=== PATIENT | male | born 1995 | race Caucasian/White ===

== ENCOUNTER 2024-02-21 06:39 | Inpatient (IN) | payer OTHER, MEDICAID ==
[~2024-02-21] VITALS: Ht 167.6 cm; Wt 95.8 kg
[~2024-02-21 06:39] MED LIST: RINGERS SOLUTION,LACTATED 1,000 ML IV ONE
[2024-02-21] MEDS ORDERED: AMPICILLIN SODIUM 2 GM/NS 100 ML IV ONE (07:11)
[2024-02-21] MEDS ORDERED: MIDAZOLAM HCL 5 MG/ML VIAL ONE (08:36)
[2024-02-21] MEDS ORDERED: FentaNYL CITRATE PF 100 MCG/2 ML VIAL ONE (08:37)
[2024-02-21 09:07] LABS: BASOPHILS % (AUTO) 0.6 % (0.0-2.0); EOSINOPHILS % (AUTO) 3.3 % (1.0-6.0); HEMATOCRIT 45.8 % (41-53); HEMOGLOBIN 15.2 g/dL (13.5-17.5); LYMPHOCYTES # (AUTO) 3.4 K/uL (1.0-4.8); LYMPHOCYTES % (AUTO) 43.5 % (22.0-44.0); MEAN CORPUSCULAR HEMOGLOBIN 28.4 pg (26.0-34.0); MEAN CORPUSCULAR HGB CONC 33.1 G/dL (31.0-37.0); MEAN CORPUSCULAR VOLUME 86 fL (80-100); MONOCYTES # (AUTO) 0.9 K/uL (0.1-1.0); MONOCYTES % (AUTO) 11.6 % (2.0-9.0); NEUTROPHILS # (AUTO) 3.2 K/uL (1.8-7.7); PLATELET COUNT (AUTO) 239 K/uL (150-450); RED BLOOD CELL COUNT(AUTO) 5.34 MIL/uL (4.50-5.90); RED CELL DISTRIBUTION WIDTH 15.4 % (11.5-14.5); WHITE BLOOD COUNT (AUTO) 7.8 K/uL (4.5-11.0)
[2024-02-21 09:22] LABS: ANION GAP 5 mmol/L (8-16); CALCIUM, TOTAL 8.8 mg/dL (8.8-10.5); CARBON DIOXIDE 33 mmol/L (22-29); CHLORIDE 101 mmol/L (98-107); CREATININE 0.62 mg/dL (0.60-1.30); GLOMERULAR FILTR. RATE CALC > 60 mL/min (>60); GLUCOSE,RANDOM 94 mg/dL (70-110); POTASSIUM 4.2 mmol/L (3.5-5.1); SODIUM SERUM 139 mmol/L (136-145); UREA NITROGEN, BLOOD 10 mg/dL (7-18)
[2024-02-21 09:26] LABS: PROTHROMBIN TIME 10.8 SEC (9.4-11.6)
[2024-02-21 09:29] LABS: ALANINE AMINOTRANSFERASE 100 U/L (12-78); ALBUMIN 3.6 g/dL (3.4-5.0); ALKALINE PHOSPHATASE 73 U/L (46-116); ASPARTATE AMINOTRANSFERASE 39 U/L (15-37); BILIRUBIN,TOTAL 0.3 mg/dL (0.1-1.0); TOTAL PROTEIN, SERUM 8.4 g/dL (6.4-8.2)
[2024-02-21] MEDS ORDERED: DIVA125T32 PO (09:42)
[2024-02-21] MEDS ORDERED: DIPH-1164 PO (09:42)
[2024-02-21] MEDS ORDERED: CLON-595 PO (09:42)
[2024-02-21] MEDS ORDERED: MELA3TAB89 PO (09:42)
[2024-02-21] MEDS: RINGERS SOLUTION,LACTATED 1,000 ML IV ONE (09:56)
[2024-02-21] MEDS ORDERED: LIDOCAINE/PF 2% 5 ML VIAL IM ONE (12:00)
[2024-02-21] MEDS ORDERED: KETAMINE HCL 50 MG/ML 10 ML VIAL IVP ONE (12:00)
[2024-02-21] MEDS ORDERED: ONDANSETRON HCL 4 MG/2 ML VIAL IVP ONE (12:00)
[2024-02-21] MEDS ORDERED: PROPOFOL 1% 20 ML VIAL IVP ONE (12:00)
[2024-02-21] MEDS ORDERED: ROCURONIUM BROMIDE 10 MG/ML 5 ML VIAL IVP ONE (12:00)
[2024-02-21] MEDS ORDERED: SUGAMMADEX SODIUM 200 MG/2 ML VIAL IVP ONE (12:00)
[2024-02-21] MEDS ORDERED: DEXAMETHASONE SOD PHOS 4 MG/ML VIAL IVP ONE (12:00)
[2024-02-21] MEDS: IPRATROPIUM BROMIDE 0.5 MG/2.5 ML NEB SOLUTION NEB PRN ×2 (12:30→18:57)
[2024-02-21] MEDS: ALBUTEROL SULFATE 2.5 MG/0.5 ML NEB SOLUTION NEB PRN ×2 (12:30→18:57)
[2024-02-21] MEDS ORDERED: FLUMAZENIL 0.1 MG/ML 5 ML VIAL IVP ONE (13:32)
[2024-02-21] MEDS ORDERED: MELATONIN 3 MG TABLET PO PRN (15:30)
[2024-02-21] MEDS ORDERED: MAGNESIUM HYDROXIDE SUSPENSION 30 ML UDCUP PO PRN (15:30)
[2024-02-21] MEDS ORDERED: ACETAMINOPHEN 325 MG TABLET PO PRN (15:30)
[2024-02-21] MEDS ORDERED: ONDANSETRON HCL 4 MG/2 ML VIAL IVP PRN (15:30)
[2024-02-21] MEDS ORDERED: BISACODYL 10 MG RECTAL RECTAL SUPPOSITORY PR PRN (15:30)
[2024-02-21 16:05] VITALS: BP 127/80; PULSE 112; RESP 19; TEMP 97.7; O2SAT 93
[2024-02-21] MEDS ORDERED: SODIUM CHLORIDE 0.9% 500 ML IV ONE (16:11)
[2024-02-21] MEDS: AMPICILLIN SODIUM/SULBACTAM NA 1.5 GM in SODIUM CHLORIDE 0.9% 50 ML IV SCH (16:49)
[2024-02-21 17:30] VITALS: O2SAT 92
[2024-02-21 18:58] VITALS: PULSE 113; RESP 25; O2SAT 93
[2024-02-21 19:00] VITALS: PULSE 113; RESP 24; O2SAT 93
[2024-02-21 19:12] LABS: APPEARANCE,URINE CLEAR (CLEAR); BILIRUBIN,URINE NEGATIVE (NEGATIVE); COLOR,URINE LIGHT YELLOW (YELLOW); GLUCOSE, URINE (UA) NEGATIVE (NEGATIVE); KETONES,URINE NEGATIVE (NEGATIVE); LEUKOCYTE ESTERASE ,URINE NEGATIVE (NEGATIVE); NITRATE,URINE NEGATIVE (NEGATIVE); OCCULT BLOOD,URINE NEGATIVE (NEGATIVE); PH,URINE 6.5 (5.0-8.0); PROTEIN,URINE NEGATIVE (NEGATIVE); SPECIFIC GRAVITIY, URINE 1.023 (1.003-1.030); UROBILINOGEN,URINE <=1.0 mg/dL (<=1.0)
[2024-02-21] MEDS: HEPARIN SODIUM,PORCINE 5,000 UNITS/ML VIAL SQ SCH (20:44)
[2024-02-21] MEDS: DIVALPROEX SODIUM 125 MG DR TABLET PO SCH (20:44)
[2024-02-21 22:40] VITALS: BP 134/84; PULSE 104; RESP 20; TEMP 97.9; O2SAT 92
[2024-02-21 23:35] VITALS: PULSE 100; RESP 23; O2SAT 83
[2024-02-22 00:48] VITALS: O2SAT 93
[2024-02-22 06:54] VITALS: BP 105/64; PULSE 106; RESP 20; TEMP 98.6; O2SAT 86
[2024-02-22 07:43] VITALS: BP 132/93; PULSE 108; RESP 18; TEMP 99; O2SAT 90
[2024-02-22] MEDS: OXYGEN THERAPY IH SCH (08:00)
[2024-02-22] MEDS: PANTOPRAZOLE SODIUM 40 MG/VIAL IVP SCH (09:07)
[2024-02-22] MEDS: FUROSEMIDE 20 MG/2 ML VIAL IVP SCH (13:07)
[2024-02-22 14:30] VITALS: BP 129/86; PULSE 91; RESP 18; TEMP 98.4; O2SAT 90
[2024-02-22] MEDS: FUROSEMIDE 20 MG/2 ML VIAL IVP ONE (18:31)
[2024-02-22 19:40] VITALS: BP 127/99; PULSE 164; RESP 20; TEMP 98.6; O2SAT 90
[2024-02-22 20:00] VITALS: O2SAT 90
[2024-02-23 06:21] VITALS: BP 138/75; PULSE 89; RESP 20; TEMP 98.8; O2SAT 92
[2024-02-23 07:45] VITALS: O2SAT 92
[2024-02-23 08:00] VITALS: O2SAT 91
[2024-02-23 08:09] VITALS: BP 133/66; PULSE 88; RESP 20; TEMP 97.7; O2SAT 91
[2024-02-23] MEDS ORDERED: SODIUM CHLORIDE 0.9% 250 ML IV ONE (09:22)
== END 2024-02-23 13:10 | disposition home or self-care (01) | DRG 157 ==
LOC: SURGERY 06:39 → 4E 06:40
PROVIDERS: ADMIT Internal Medicine; ATTEND Internal Medicine
PROC: 0CB Mouth and Throat, Excision (ICD-10-PCS; 2024-02-21)
PROC: 0CB6XZZ Excision of Lower Gingiva, External Approach (ICD-10-PCS; principal; 2024-02-21 10:25)
DX: K05.322 Chronic periodontitis, generalized, moderate (principal); J69.0 Pneumonitis due to inhalation of food and vomit; J96.91 Respiratory failure, unspecified with hypoxia; F84.0 Autistic disorder; J98.11 Atelectasis; J81.1 Chronic pulmonary edema; G47.33 Obstructive sleep apnea (adult) (pediatric); K21.9 Gastro-esophageal reflux disease without esophagitis; F41.9 Anxiety disorder, unspecified; E66.9 Obesity, unspecified; G40.909 Epilepsy, unspecified, not intractable, without status epilepticus; Z88.8 Allergy status to other drugs, medicaments and biological substances; Z68.34 Body mass index [BMI] 34.0-34.9, adult
CPT/HCPCS: 71045; 80053; 81003; 85025; 85610; 85730; 92610; 93005; 94640; C9113; G0378; J0290; J0295; J1100; J1644; J1940; J2250; J2405; J2704; J3010; J3490; J7040; J7050; J7120; 36415-L1; 36415-TC; J2471; J7613